=== PATIENT | male | born 1985 | race American Indian/Alaskan Native ===

== ENCOUNTER 2016-11-26 07:32 | Outpatient (CLI) | payer OTHER ==
--- NOTE | 2016-11-26 11:12 | Ultrasound Report ---
ULTRASOUND THYROID SCAN HISTORY: Neck mass, thyroid nodule. FINDINGS: Grayscale ultrasound of the thyroid was performed with color Doppler interrogation. The thyroid gland is normal size, contour and echotexture. No cyst, mass or calcifications. There is symmetric perfusion on color Doppler. No neck adenopathy is appreciated. IMPRESSION: Thyroid gland within normal limits.
== END 2016-11-26 07:33 | disposition home or self-care (01) ==
LOC: US 07:32
PROVIDERS: ATTEND Family Medicine
DX: R22.1 Localized swelling, mass and lump, neck (principal); J45.909 Unspecified asthma, uncomplicated
CPT/HCPCS: 76536